=== PATIENT | male | born 1960 | race African-American/Black ===

== ENCOUNTER 2017-02-13 12:58 | Emergency (ER) | payer OTHER ==
[~2017-02-13] VITALS: Ht 175.3 cm; Wt 106.5 kg
[~2017-02-13 12:58] MED LIST: LISI2.5T3 PO; LORT7.5T3 PO; PROM25SU8 PO; TRAM50 PO
[2017-02-13 13:01] VITALS: BP 135/83; PULSE 82; RESP 20; TEMP 98.7; O2SAT 97
--- NOTE | 2017-02-13 14:31 | PD ---
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 Patient states he was scheduled to have his colostomy reversed at [facility] this past week, and was told that that surgeon would not reverse it secondary to his insurance. Patient is currently not having any medical complaints, such as pain, bleeding, or other issues. He is requesting referral to one of our surgeons for colostomy reversal. He has no known drug allergies. PFSH Past Medical History Arthritis: Yes Asthma: No Autoimmune Disease: No Blood Disorders: No Anxiety: Yes Depression: No Heart Rhythm Problems: No Cancer: No Cardiovascular Problems: Yes ([place]) High Cholesterol: No Chemotherapy: No Chest Pain: No Congestive Heart Failure: No COPD: No Cerebrovascular Accident: No Diabetes: No Diminished Hearing: No Endocrine: No GERD: No Glaucoma: No Genitourinary: Yes Headaches: Yes Hepatitis: No Hiatal Hernia: No Hypertension: Yes Immune Disorder: No Kidney Stones: No Musculoskeletal: No Neurologic: Yes Psychiatric: No Reproductive: No Respiratory: Yes Migraines: No Myocardial Infarction: No Radiation Therapy: No Renal Failure: No Seizures: No Sleep Apnea: No Thyroid Disease: No Ulcer: No Past Surgical History Abdominal Surgery: Yes (APPE) AICD: No Appendectomy: Yes Cholecystectomy: No Genitourinary Surgery: No Pacemaker: No Social History Alcohol Use: No Tobacco Use: No Substance Use: No (STATES "QUIT" MARIJUANA) Allergies-Medications (Allergen,Severity, Reaction): Coded Allergies: No Known Allergies (Verified , 02/13/17) Reported Meds & Prescriptions Reported Meds & Active Scripts Active Reported Oxycodone (Oxycodone HCl) 30 Mg Tab 30 Mg PO Q8HR Norvasc (Amlodipine Besylate) 10 Mg Tab 10 Mg PO DAILY Atenolol 25 Mg Tab 12.5 Mg PO DAILY Hydrochlorothiazide 12.5 Mg Cap 12.5 Mg PO DAILY Review of Systems Except as stated in HPI: all other systems reviewed are Neg General / Constitutional: No: Fever Eyes: No: Visual changes HENT: No: Headaches Cardiovascular: No: Chest Pain or Discomfort Respiratory: No: Shortness of Breath Gastrointestinal: No: Abdominal Pain Genitourinary: No: Dysuria Musculoskeletal: No: Pain Skin: No Rash Neurologic: No: Weakness Psychiatric: No: Depression Endocrine: No: Polydipsia Hematologic/Lymphatic: No: Easy Bruising Physical Exam Narrative GENERAL: Patient appears in no acute distress. SKIN: Warm and dry. Normal color. Normal turgor. Well healed ostomy site is noted. HEAD: Atraumatic. Normocephalic. EYES: Pupils equal and round. No scleral icterus. No injection or drainage. ENT: No nasal bleeding or discharge. Mucous membranes pink and moist. NECK: Trachea midline. No JVD. CARDIOVASCULAR: Regular rate and rhythm. RESPIRATORY: No accessory muscle use. Clear to auscultation. Breath sounds equal bilaterally. GASTROINTESTINAL: Abdomen soft, non-tender, nondistended. Hepatic and splenic margins not palpable. MUSCULOSKELETAL: Extremities without clubbing, cyanosis, or edema. No obvious deformities. NEUROLOGICAL: Awake and alert. No obvious cranial nerve deficits. Motor grossly within normal limits. Five out of 5 muscle strength in the arms and legs. Normal speech. PSYCHIATRIC: Appropriate mood and affect; insight and judgment normal. Data Data Last Documented VS Vital Signs Date Time Temp Pulse Resp B/P Pulse Ox O2 Delivery O2 Flow Rate FiO2 02/13/17 13:01 98.7 82 20 135/83 97 Room Air Orders Mandatory Outpatient Referral (02/13/17 14:31) [facility] Medical Decision Making Medical Screen Exam Complete: Yes Emergency Medical Condition: Yes Differential Diagnosis History of diverticulitis requiring surgery. History of colostomy placement secondary to diverticulitis surgery. Desire for colostomy reversal. Narrative Course Patient is medically stable at time of exam. Patient will be referred to Dr. Massey, the surgeon on-call. Patient is instructed to get copies of all of his medical records from [facility]. Patient may need to see a primary care physician for referral based on his insurance. Diagnosis Primary Impression: History of diverticulitis of colon Additional Impression: Status post colostomy Referrals: Kenny Eid MD call for appointment Patient Instructions: General Instructions Additional Instructions: Patient is medically stable at time of exam. Patient will be referred to Dr. Massey, the surgeon on-call. Patient is instructed to get copies of all of his medical records from [facility]. Patient may need to see a primary care physician for referral based on his insurance. Med/Other Pt SpecificInfo: No Meds Exist/No RX given Disposition: 01 DISCHARGE HOME Condition: Stable Steve Ayala Feb 13, 2017 14:31
[2017-02-13] MEDS ORDERED: ATEN25TA PO (14:33)
[2017-02-13] MEDS ORDERED: HYDR12.57 PO (14:33)
[2017-02-13] MEDS ORDERED: AMLO10 PO (14:33)
[2017-02-13] MEDS ORDERED: OXYC30TA PO (14:33)
== END 2017-02-13 15:10 | disposition home or self-care (01) ==
LOC: NEPK 12:58
DX: Z43.3 Encounter for attention to colostomy (principal); Z98.890 Other specified postprocedural states
CPT/HCPCS: 99281

== ENCOUNTER 2018-02-20 21:14 | Emergency (ER) | payer SELFPAY ==
[~2018-02-20] VITALS: Ht 152.4 cm; Wt 108.0 kg
[~2018-02-20 21:14] MED LIST changes: +AMLO10 PO; +ATEN25TA PO; +HYDR12.57 PO; -LISI2.5T3 PO; -LORT7.5T3 PO; +OXYC30TA PO; -PROM25SU8 PO; -TRAM50 PO
[2018-02-20 21:19] VITALS: BP 212/89; PULSE 92; RESP 16; TEMP 99.3; O2SAT 95
--- NOTE | 2018-02-20 21:57 | PD ---
HPI Chief Complaint: Respiratory Symptoms Time Seen by Provider: 21:51 Travel History International Travel<30 days: No Contact w/Intl Traveler<30days: No Traveled to known affect area: No History of Present Illness HPI 57-year-old male presents to the emergency department for 2-3 days of pedal edema and ankle edema associated with shortness of breath. Patient states he has not noted any orthopnea or PND. Patient is noted shortness of breath with exertion but not at rest. Patient denies any chest pain or referred neck jaw back shoulder arm pain. Patient also reports some occasional intermittent abdominal discomfort but cannot rate the intensity of pain other than present at times. Patient denies any dysuria frequency urgency diarrhea constipation nausea vomiting hematemesis coffee-ground emesis melena hematochezia. Patient said no change in his urine output. Patient states he awakened several times throughout the night for increased urine output that he notes nightly and has not changed. Patient does not report any orthopnea states he typically sleeps flat throughout the night on single pillow and this is not changed. Patient does not have a current primary care provider but is followed by Dr. Valencia his pain management doctor for chronic pain syndrome who refills his blood pressure medications. Patient denies diabetes. Patient does not smoke cigarettes. Patient does have CAD with previous IA, hypertension and dyslipidemia. Patient is unable to identify specific exacerbating or alleviating factors. PFSH Past Medical History Narrative Medical Hypertension dyslipidemia CAD IA cardiac catheterization diverticulitis pancreatitis appendectomy; nursing notes reviewed Arthritis: Yes Asthma: No Autoimmune Disease: No Blood Disorders: No Anxiety: Yes Depression: No Heart Rhythm Problems: No Cancer: No Cardiac Catheterization: Yes Cardiovascular Problems: Yes (HTN, MIx1, balloon pump used) High Cholesterol: No Chemotherapy: No Chest Pain: No Congestive Heart Failure: No COPD: No Cerebrovascular Accident: No Diabetes: No Diminished Hearing: No Endocrine: No Gastrointestinal Disorders: Yes GERD: No Glaucoma: No Genitourinary: Yes Headaches: Yes Hepatitis: No Hiatal Hernia: No Hypertension: Yes Immune Disorder: No Kidney Stones: No Musculoskeletal: No Neurologic: Yes Psychiatric: No Reproductive: No Respiratory: Yes Migraines: No Myocardial Infarction: No Radiation Therapy: No Renal Failure: No Seizures: No Sleep Apnea: No Thyroid Disease: No Ulcer: No Past Surgical History Abdominal Surgery: Yes (APPE) AICD: No Appendectomy: Yes Cholecystectomy: No Genitourinary Surgery: No Pacemaker: No Other Surgery: Yes Social History Alcohol Use: No Tobacco Use: No Substance Use: No (STATES "QUIT" MARIJUANA) Allergies-Medications (Allergen,Severity, Reaction): Coded Allergies: No Known Allergies (Verified , 02/13/17) Reported Meds & Prescriptions Reported Meds & Active Scripts Active Reported Oxycodone (Oxycodone HCl) 30 Mg Tab 30 Mg PO Q8HR Norvasc (Amlodipine Besylate) 10 Mg Tab 10 Mg PO DAILY Atenolol 25 Mg Tab 12.5 Mg PO DAILY Hydrochlorothiazide 12.5 Mg Cap 12.5 Mg PO DAILY Review of Systems Except as stated in HPI: all other systems reviewed are Neg General / Constitutional: No: Fever, Chills HENT: No: Congestion Cardiovascular: Positive: Dyspnea on exertion, Edema, No: Chest Pain or Discomfort, Diaphoresis, Syncope Respiratory: Positive: Shortness of Breath, No: Cough, Wheezing, Orthopnea, Hemoptysis, Pleuritic Pain Gastrointestinal: No: Nausea, Vomiting, Diarrhea, Abdominal Pain Genitourinary: No: Dysuria Musculoskeletal: No: Myalgias, Arthralgias Skin: No Rash Neurologic: No: Weakness Psychiatric: No: Anxiety Hematologic/Lymphatic: No: Lymph Node Enlargement Physical Exam Narrative GENERAL: Well-developed well-nourished male no acute distress no respiratory distress SKIN: Warm and dry. HEAD: Normocephalic. EYES: No scleral icterus. No injection or drainage. NECK: Supple, trachea midline. No JVD or lymphadenopathy. CARDIOVASCULAR: Regular rate and rhythm without murmurs, gallops, or rubs. RESPIRATORY: Breath sounds equal bilaterally. No accessory muscle use. Lung sounds are clear to auscultation throughout all fung GASTROINTESTINAL: Abdomen soft, non-tender, nondistended. MUSCULOSKELETAL: No cyanosis, bilateral lower leg ankle and pedal nonpitting edema. Bilateral radial pulses and dorsalis pedis pulses 2+ to palpation BACK: Nontender without obvious deformity. No CVA tenderness. Data Data Last Documented VS Vital Signs Date Time Temp Pulse Resp B/P (MAP) Pulse Ox O2 Delivery O2 Flow Rate FiO2 02/21/18 00:55 81 18 139/79 (99) 96 Room Air 02/20/18 21:19 99.3 Orders Orders Complete Blood Count With Diff (02/20/18 21:51) Comprehensive Metabolic Panel (02/20/18 21:51) B-Type Natriuretic Peptide (02/20/18:51) Act Partial Throm Time (Ptt) (02/20/18:51) Prothrombin Time / Inr (Pt) (02/20/18 21:51) Magnesium (Mg) (02/20/18 21:51) Ckmb (Isoenzyme) Profile (02/20/18:51) Troponin I (02/20/18:51) Urinalysis - C+S If Indicated (02/20/18:51) Iv Access Insert/Monitor (02/20/18:51) Electrocardiogram (02/20/18:51) Ecg Monitoring (02/20/18:51) Oximetry (02/20/18:51) Oxygen Administration (02/20/18:51) Chest, Single Ap (02/20/18:51) Sodium Chloride 0.9% Flush (Ns Flush) (02/20/18 22:00) CKMB (02/20/18 22:00) CKMB% (02/20/18 22:00) Urine Culture (02/20/18 23:45) Ed Discharge Order (02/21/18 00:58) Cephalexin (Keflex) (02/21/18 01:00) Furosemide Inj (Lasix Inj) (02/21/18 01:00) Labs Laboratory Tests Test 02/20/18 22:00 02/20/18 23:45 White Blood Count 9.3 TH/MM3 Red Blood Count 5.44 MIL/MM3 Hemoglobin 12.1 GM/DL Hematocrit 40.5 % Mean Corpuscular Volume 74.3 FL Mean Corpuscular Hemoglobin 22.2 PG Mean Corpuscular Hemoglobin Concent 29.9 % Red Cell Distribution Width 20.5 % Platelet Count 234 TH/MM3 Mean Platelet Volume 7.9 FL Neutrophils (%) (Auto) 56.3 % Lymphocytes (%) (Auto) 26.4 % Monocytes (%) (Auto) 13.0 % Eosinophils (%) (Auto) 3.8 % Basophils (%) (Auto) 0.5 % Neutrophils # (Auto) 5.2 TH/MM3 Lymphocytes # (Auto) 2.5 TH/MM3 Monocytes # (Auto) 1.2 TH/MM3 Eosinophils # (Auto) 0.4 TH/MM3 Basophils # (Auto) 0.0 TH/MM3 CBC Comment DIFF FINAL Differential Comment Prothrombin Time 10.7 SEC Prothromb Time International Ratio 1.1 RATIO Activated Partial Thromboplast Time 23.1 SEC Blood Urea Nitrogen 16 MG/DL Creatinine 2.21 MG/DL Random Glucose 311 MG/DL Total Protein 7.6 GM/DL Albumin 3.2 GM/DL Calcium Level 8.8 MG/DL Magnesium Level 1.8 MG/DL Alkaline Phosphatase 86 U/L Aspartate Amino Transf (AST/SGOT) 21 U/L Alanine Aminotransferase (ALT/SGPT) 27 U/L Total Bilirubin 0.3 MG/DL Sodium Level 134 MEQ/L Potassium Level 3.8 MEQ/L Chloride Level 100 MEQ/L Carbon Dioxide Level 22.5 MEQ/L Anion Gap 12 MEQ/L Estimat Glomerular Filtration Rate 37 ML/MIN Total Creatine Kinase 298 U/L Creatine Kinase MB 2.7 NG/ML Troponin I LESS THAN 0.02 NG/ML B-Type Natriuretic Peptide 12 PG/ML Urine Color YELLOW Urine Turbidity CLEAR Urine pH 5.0 Urine Specific [place] 1.022 Urine Protein NEG mg/dL Urine Glucose (UA) >=500 mg/dL Urine Ketones NEG mg/dL Urine Occult Blood NEG Urine Nitrite NEG Urine Bilirubin NEG Urine Urobilinogen LESS THAN 2 mg/dL Urine Leukocyte Esterase SMALL Urine RBC 1 /hpf Urine WBC 17 /hpf Urine Squamous Epithelial Cells <1 /hpf Urine Hyaline Casts 12 /lpf Urine Mucus FEW /lpf Microscopic Urinalysis Comment CULTURE INDICATED MDM Medical Decision Making Medical Screen Exam Complete: Yes Emergency Medical Condition: Yes Medical Record Reviewed: Yes Interpretation(s) EKG sinus rhythm rate [address] elevation or injury pattern change noted nonspecific T-wave changes left axis deviation LVH Troponin I less than 0.02; not elevated BNP not elevated Last Impressions Chest X-Ray 02/20/182150 Signed Impressions: CONCLUSION: 1. Compensated cardiomegaly. CBC & BMP Diagram 02/20/18 22:00 Total Protein 7.6, Albumin 3.2 L, Calcium Level 8.8, Magnesium Level 1.8, Alkaline Phosphatase 86, Aspartate Amino Transf (AST/SGOT) 21, Alanine Aminotransferase (ALT/SGPT) 27, Total Bilirubin 0.3 Vital Signs Date Time Temp Pulse Resp B/P (MAP) Pulse Ox O2 Delivery O2 Flow Rate FiO2 02/21/18 00:55 81 18 139/79 (99) 96 Room Air 02/20/18 21:52 95 Room Air 02/20/18 21:19 99.3 92 16 212/89 (130) 95 Differential Diagnosis Dyspnea, CHF, pulmonary edema, pneumonia, pericardial effusion, pleural effusion , PE, uncontrolled hypertension, ACS, IA, adverse medication reaction-calcium channel tereza related ankle edema Narrative Course Patient placed on environmental monitoring technician IV access obtained specimens collected and sent for resulting pulse oximeter administered; EKG performed reveals no acute abnormality Patient resting comfortably voicing no concerns or complaints chest x-ray reveals no vascular congestion BNP is not elevated lung sounds are clear to auscultation suspect that peripheral edema is related to possible Urinalysis patient with white blood cells culture indicated no bacteria patient denies any penile discharge or lesions; patient will be covered presumptively for possible UTI suspect peripheral edema related to calcium channel tereza use causing ankle and pedal edema. Patient is encouraged to follow-up with his primary care provider or through [facility] for blood pressure management Diagnosis Primary Impression: Peripheral edema Additional Impressions: UTI (urinary tract infection) Renal insufficiency Referrals: [facility] 1 day Primary Care Physician call for appointment Patient Instructions: General Instructions Additional Instructions: Follow-up with your primary care provider through [facility] for adjustment of blood pressure medications Complete course of antibiotic as prescribed Return to the emergency department for any concerns or change in condition Med/Other Pt SpecificInfo: Prescription(s) given Scripts Cephalexin (Keflex) 500 Mg Cap 500 MG PO Q6H for Infection for 7 Days, #28 CAP 0 Refills Prov: Jen Colin MD 02/21/18 Disposition: 01 DISCHARGE HOME Condition: Stable Jen Colin MD Feb 20, 2018 21:57
[2018-02-20] MEDS ORDERED: SODIUM CHLORIDE 0.9% FLUSH 10 ML FLUSH IVF PRN (22:00)
[2018-02-20 22:07] LABS: AUTOMATED NEUTROPHIL # 5.2 TH/MM3 (1.8-7.7); BASOPHIL % 0.5 % (0.0-2.0); EOSINOPHIL # 0.4 TH/MM3 (0-0.4); EOSINOPHIL % 3.8 % (0.0-4.0); HEMATOCRIT 40.5 % (39.0-51.0); HEMOGLOBIN 12.1 GM/DL (13.0-17.0); LYMPH % 26.4 % (9.0-44.0); LYMPHOCYTE # 2.5 TH/MM3 (1.0-4.8); MEAN CELL VOLUME 74.3 FL (80.0-100.0); MEAN CORPUSCULAR HEMOGLOBIN 22.2 PG (27.0-34.0); MEAN PLATELET VOLUME 7.9 FL (7.0-11.0); MONOCYTE # 1.2 TH/MM3 (0-0.9); NEUT % 56.3 % (16.0-70.0); PLATELET COUNT 234 TH/MM3 (150-450); RED BLOOD COUNT 5.44 MIL/MM3 (4.50-5.90); RED CELL DISTRIBUTION WIDTH 20.5 % (11.6-17.2); WHITE BLOOD COUNT 9.3 TH/MM3 (4.0-11.0)
[2018-02-20 22:09] LABS: MEAN CORPUSCULAR HGB CONC 29.9 % (32.0-36.0)
[2018-02-20 22:15] LABS: INTERNATIONAL NORMALIZED RATIO 1.1 RATIO; PROTHROMBIN TIME - PATIENT 10.7 SEC (9.8-11.6)
--- NOTE | 2018-02-20 22:37 | RADRPT ---
EXAM DATE: 02/20/2018 10:31 PM EDT AGE/SEX: 57 years / Male INDICATIONS: Shortness of breath. CLINICAL DATA: This is the patient's initial encounter. Patient reports that signs and symptoms have been present for 1 day and indicates a pain score of 0/10. MEDICAL/SURGICAL HISTORY: None. None. COMPARISON: No prior exams available for comparison. FINDINGS: No significant focal pleural or parenchymal opacities. Cardiac silhouette is enlarged. Bony thorax is intact. CONCLUSION: 1. Compensated cardiomegaly. Electronically signed by: Michi Laureano MD 02/20/2018 10:36 PM EDT
[2018-02-20 22:38] LABS: ALBUMIN 3.2 GM/DL (3.4-5.0); AST (GOT) 21 U/L (15-37); BICARBONATE 22.5 MEQ/L (21.0-32.0); BLOOD UREA NITROGEN 16 MG/DL (7-18); CALCIUM 8.8 MG/DL (8.5-10.1); CHLORIDE 100 MEQ/L (98-107); CREATININE 2.21 MG/DL (0.60-1.30); GLOMERULAR FILTRATION RATE 37 ML/MIN (>89); GLUCOSE,RANDOM 311 MG/DL (74-106); MAGNESIUM 1.8 MG/DL (1.5-2.5); SODIUM (NA) 134 MEQ/L (136-145)
[2018-02-20 22:39] LABS: ALT (GPT) 27 U/L (12-78)
[2018-02-20 22:42] LABS: ALKALINE PHOSPHATASE 86 U/L (45-117); TOTAL BILIRUBIN ADULT 0.3 MG/DL (0.2-1.0); TOTAL PROTEIN 7.6 GM/DL (6.4-8.2); TROPONIN I LESS THAN 0.02 NG/ML (0.02-0.05)
[2018-02-21 00:09] LABS: BILIRUBIN, URINE NEG (NEG); BLOOD, URINE NEG (NEG); GLUCOSE,URINE >=500 mg/dL (NEG); HYALINE CAST, URINE 12 /lpf (RARE); KETONE, URINE NEG (NEG); MUCUS URINE FEW /lpf (OCC); NITRITE,URINE NEG (NEG); SQUAMOUS EPITHELIAL CELL URINE <1 /hpf (0-5); URINE COLOR YELLOW (YELLW/STRAW); URINE LEUKOCYTE ESTERASE SMALL (NEG)
[2018-02-21 00:55] VITALS: BP 139/79; PULSE 81; RESP 18; O2SAT 96
[2018-02-21] MEDS ORDERED: CEPHALEXIN MONOHYDRATE 500 MG CAP PO ONE (01:00)
[2018-02-21] MEDS ORDERED: FUROSEMIDE 20 MG/2 ML VIAL IV PUSH ONE (01:00)
[2018-02-21] MEDS ORDERED: CEPH-460 PO (01:03)
--- NOTE | 2018-02-21 13:56 | EKG ---
Date Performed: 02/20/2018 Time Performed: 21:37:18 PTAGE: 57 years EKG: Sinus rhythm MARKED LEFT AXIS DEVIATION MINIMAL VOLTAGE CRITERIA FOR LVH, CONSIDER NORMAL VARIANT NONSPECIFIC T-W AVE ABNORMALITY ABNORMAL ECG INTERPRETATION BASED ON A DEFAULT AGE OF 40 YEARS PREVIOUS TRACING : 05/15/2008 17.04 DOCTOR: Ced Shah Interpretating Date/Time 02/21/2018 13:54:48
== END 2018-02-21 01:28 | disposition home or self-care (01) ==
LOC: NEPC 21:14
DX: R60.0 Localized edema (principal); N39.0 Urinary tract infection, site not specified; N28.9 Disorder of kidney and ureter, unspecified; I51.7 Cardiomegaly; R94.31 Abnormal electrocardiogram [ECG] [EKG]; I25.10 Atherosclerotic heart disease of native coronary artery without angina pectoris; I10 Essential (primary) hypertension; E78.5 Hyperlipidemia, unspecified; I25.2 Old myocardial infarction; M19.90 Unspecified osteoarthritis, unspecified site; F41.9 Anxiety disorder, unspecified; F17.210 Nicotine dependence, cigarettes, uncomplicated; Z79.899 Other long term (current) drug therapy
CPT/HCPCS: 71045; 80053; 81001; 82550; 82552; 83735; 83880; 84484; 85025; 85610; 85730; 87086; 93005; 96374; 99285; J1940